=== PATIENT | female | born 1935 | race African-American/Black ===

== ENCOUNTER 2017-12-03 09:14 | Inpatient (IN) | payer MEDICARE, MEDICAID ==
[~2017-12-03] VITALS: Ht 162.6 cm; Wt 63.5 kg
[~2017-12-03 09:14] MED LIST: ASPI-1160 PO; ATEN50TA PO; CALC-1042 PO; DOCU-138 PO; LISI-648 PO; MEMA10TA2 PO; METF-414 PO; NIFE30TA94 PO; SIMV40TA5 PO
[2017-12-03 10:04] LABS: BASOPHILS % 0.7 % (0.0-2.0); EOSINOPHILS % 2.5 % (0.0-5.0); HEMATOCRIT. 34.9 % (36.0-48.0); HEMOGLOBIN. 11.4 g/dL (12.0-16.0); LYMPHOCYTES % 33.1 % (20.0-50.0); MEAN CORPUSCULAR HEMOGLOBIN 26.6 pg (28.0-32.0); MEAN CORPUSCULAR VOLUME 81.6 fL (81.0-99.0); MEAN PLATELET VOLUME 9.4 fl (7.4-10.4); MONOCYTES % 5.6 % (2.0-8.0); NEUTROPHILS % 58.1 % (40.0-76.0); PLATELET 214 x1000/uL (130-400); RED BLOOD CELL COUNT 4.28 mill/uL (4.2-5.4); RED CELL DISTRIBUTION WIDTH 14.5 % (11.6-14.6)
[2017-12-03 10:08] LABS: PROTHROMBIN TIME 10.3 sec (9.1-11.1)
[2017-12-03 10:11] LABS: CHLORIDE 112 mEq/L (98-107)
[2017-12-03] MEDS ORDERED: ACETAMINOPHEN 325MG TABLET PO PRN (10:45)
[2017-12-03] MEDS ORDERED: HYDROCODONE/ACETAMINOPHEN 5/325MG TABLET PO PRN (10:45)
[2017-12-03] MEDS ORDERED: NA PHOS,M-B/NA PHOS,DI-BA ENEMA 118ML PR PRN (10:45)
[2017-12-03] MEDS ORDERED: MAGNESIUM/ALUMINUM HYDROXIDE/SIMETHICONE 30ML UDC PO PRN (10:45)
[2017-12-03] MEDS ORDERED: CLONIDINE 0.1MG TABLET PO PRN (10:45)
[2017-12-03] MEDS ORDERED: DOCUSATE SODIUM 100MG CAPSULE PO PRN (10:45)
[2017-12-03] MEDS ORDERED: IPRATROPIUM/ALBUTEROL 0.5-3(2.5)MG/3ML NEB INH PRN (10:45)
[2017-12-03] MEDS ORDERED: ONDANSETRON HCL 4MG/2ML INJ IV PRN (10:45)
[2017-12-03] MEDS ORDERED: LORAZEPAM 2MG/ML CPJ IV PRN (10:45)
[2017-12-03] MEDS ORDERED: DIPHENHYDRAMINE 50MG/ML VIAL IV PRN (10:45)
[2017-12-03] MEDS ORDERED: HYDROMORPHONE HCL/PF 2MG/ML CPJ IV PRN (10:45)
[2017-12-03] MEDS ORDERED: GUAIFENESIN 200MG/10ML SUGAR FREE UDC PO PRN (10:45)
[2017-12-03 12:30] LABS: CLARITY URINE CLEAR (CLEAR); COLOR URINE YELLOW (YELLOW); KETONES URINE NEGATIVE (NEGATIVE); LEUKOCYTE ESTERASE URINE NEGATIVE (NEGATIVE); NITRITE URINE NEGATIVE (NEGATIVE); OCCULT BLOOD URINE NEGATIVE (NEGATIVE); PROTEIN URINE NEGATIVE (NEGATIVE); SPECIFIC GRAVITY URINE 1.019 (1.005-1.030); UROBILINOGEN URINE 0.2 E.U./dL (0.2-1.0)
[2017-12-03 16:45] VITALS: BP 151/75
[2017-12-03] MEDS ORDERED: ATOR20TA65 MT (16:53)
[2017-12-03] MEDS ORDERED: MAGN400C MT (16:53)
[2017-12-03] MEDS ORDERED: LOV40 SQ (16:53)
[2017-12-03] MEDS ORDERED: HYDR12.529 MT (16:53)
[2017-12-03] MEDS: ENOXAPARIN 40MG/0.4ML SYR SUBCUT SCH (17:04)
[2017-12-03] MEDS ORDERED: DEXTROSE 50% WATER 50ML SYRINGE IV PRN ×2 (18:15)
[2017-12-03 20:00] VITALS: BP 136/72
[2017-12-03] MEDS: BLOOD SUGAR DIAGNOSTIC STRIP TEST SCH (20:40)
[2017-12-03] MEDS: AMLODIPINE 5MG TABLET PO SCH (20:42)
[2017-12-03] MEDS: SODIUM CHLORIDE 0.45% 1,000 ML IV SCH (20:44)
[2017-12-03 21:16] LABS: VITAMIN B12 SERUM 553 pg/mL (211-911)
[2017-12-03 21:30] VITALS: BP 128/84
[2017-12-03] MEDS: INSULIN LISPRO 100 UNITS/ML SUBCUT SCH (22:27)
[2017-12-04] VITALS: BP 130/60
[2017-12-04 04:00] VITALS: BP 107/57
[2017-12-04] MEDS: BLOOD SUGAR DIAGNOSTIC STRIP TEST SCH ×4 (05:46→20:11)
[2017-12-04] MEDS: INSULIN LISPRO 100 UNITS/ML SUBCUT SCH ×4 (05:46→21:17)
[2017-12-04 08:00] VITALS: BP 128/71
[2017-12-04 08:02] LABS: EOSINOPHILS % 3.4 % (0.0-5.0); HEMATOCRIT. 31.3 % (36.0-48.0); HEMOGLOBIN. 10.4 g/dL (12.0-16.0); LYMPHOCYTES % 42.9 % (20.0-50.0); MEAN CORPUSCULAR HEMOGLOBIN 27.2 pg (28.0-32.0); MEAN CORPUSCULAR VOLUME 81.3 fL (81.0-99.0); MEAN PLATELET VOLUME 9.8 fl (7.4-10.4); MONOCYTES % 7.4 % (2.0-8.0); NEUTROPHILS % 45.3 % (40.0-76.0); PLATELET 190 x1000/uL (130-400); RED BLOOD CELL COUNT 3.85 mill/uL (4.2-5.4); RED CELL DISTRIBUTION WIDTH 14.2 % (11.6-14.6)
[2017-12-04 08:16] LABS: CHLORIDE 108 mEq/L (98-107)
[2017-12-04 08:40] LABS: HDL CHOLESTEROL 39 mg/dL (40-59); LDL CHOLESTEROL 87 mg/dL (5-100); T4 FREE 0.92 ng/dL (0.76-1.46)
[2017-12-04] MEDS: AMLODIPINE 5MG TABLET PO SCH ×2 (08:58→21:08)
[2017-12-04] MEDS: ASPIRIN 81MG EC TABLET PO SCH (08:58)
[2017-12-04 12:00] VITALS: BP 116/72
[2017-12-04] MEDS: SODIUM CHLORIDE 0.45% 1,000 ML IV SCH (15:51)
[2017-12-04 16:00] VITALS: BP 118/73
[2017-12-04] MEDS: MEMANTINE HCL 5MG TABLET PO SCH (16:00)
[2017-12-04] MEDS: LAMOTRIGINE 25MG TABLET PO SCH (17:31)
[2017-12-04] MEDS: ENOXAPARIN 40MG/0.4ML SYR SUBCUT SCH (17:34)
[2017-12-04 20:00] VITALS: BP 136/61
[2017-12-05] VITALS: BP 132/66
[2017-12-05 04:00] VITALS: BP 148/83
[2017-12-05] MEDS: BLOOD SUGAR DIAGNOSTIC STRIP TEST SCH ×4 (05:17→20:55)
[2017-12-05] MEDS: INSULIN LISPRO 100 UNITS/ML SUBCUT SCH ×4 (05:35→21:00)
[2017-12-05 08:00] VITALS: BP 152/73
[2017-12-05] MEDS: AMLODIPINE 5MG TABLET PO SCH ×2 (09:22→21:41)
[2017-12-05] MEDS: ASPIRIN 81MG EC TABLET PO SCH (09:22)
[2017-12-05] MEDS: MEMANTINE HCL 5MG TABLET PO SCH (09:22)
[2017-12-05] MEDS: LAMOTRIGINE 25MG TABLET PO SCH (09:22)
[2017-12-05 12:00] VITALS: BP 107/77
[2017-12-05 16:00] VITALS: BP 164/89
[2017-12-05] MEDS: ENOXAPARIN 40MG/0.4ML SYR SUBCUT SCH (17:26)
[2017-12-05 20:00] VITALS: BP 143/59
[2017-12-05] MEDS: SODIUM CHLORIDE 0.45% 1,000 ML IV SCH (21:40)
[2017-12-06] VITALS: BP 148/78
[2017-12-06 04:00] VITALS: BP 146/77
[2017-12-06] MEDS: BLOOD SUGAR DIAGNOSTIC STRIP TEST SCH ×2 (05:44→11:54)
[2017-12-06] MEDS: INSULIN LISPRO 100 UNITS/ML SUBCUT SCH ×2 (06:36→11:55)
[2017-12-06 08:00] VITALS: BP 143/84
[2017-12-06 08:05] LABS: BASOPHILS % 0.7 % (0.0-2.0); HEMATOCRIT. 31.9 % (36.0-48.0); HEMOGLOBIN. 10.8 g/dL (12.0-16.0); LYMPHOCYTES % 33.9 % (20.0-50.0); MEAN CORPUSCULAR VOLUME 80.1 fL (81.0-99.0); MEAN PLATELET VOLUME 9.2 fl (7.4-10.4); MONOCYTES % 8.5 % (2.0-8.0); NEUTROPHILS % 53.9 % (40.0-76.0); PLATELET 185 x1000/uL (130-400); RED BLOOD CELL COUNT 3.98 mill/uL (4.2-5.4); RED CELL DISTRIBUTION WIDTH 13.9 % (11.6-14.6)
[2017-12-06 08:33] LABS: CHLORIDE 104 mEq/L (98-107)
[2017-12-06] MEDS: MEMANTINE HCL 5MG TABLET PO SCH (09:23)
[2017-12-06] MEDS: ASPIRIN 81MG EC TABLET PO SCH (09:23)
[2017-12-06] MEDS: LAMOTRIGINE 25MG TABLET PO SCH (09:23)
[2017-12-06] MEDS: AMLODIPINE 5MG TABLET PO SCH (09:24)
[2017-12-06 12:00] VITALS: BP 122/73
== END 2017-12-06 15:35 | DRG 73 ==
LOC: EDBEDREQ 09:37 → ER 09:55 → 8WST 10:33 → EDBEDREQTM 10:35 → EDBEDREQ 10:35 → ENRESERV 14:52
PROVIDERS: ADMIT Internal Medicine; ATTEND Internal Medicine
PROC: 4A10X4Z Monitoring of Central Nervous Electrical Activity, External Approach (ICD-10-PCS; principal; 2017-12-04)
DX: G90.8 Other disorders of autonomic nervous system (principal); G93.41 Metabolic encephalopathy; E87.0 Hyperosmolality and hypernatremia; E46 Unspecified protein-calorie malnutrition; D50.9 Iron deficiency anemia, unspecified; E86.0 Dehydration; E78.5 Hyperlipidemia, unspecified; F41.9 Anxiety disorder, unspecified; G30.9 Alzheimer's disease, unspecified; R79.89 Other specified abnormal findings of blood chemistry; F02.80 Dementia in other diseases classified elsewhere, unspecified severity, without behavioral disturbance, psychotic disturbance, mood disturbance, and anxiety; I50.9 Heart failure, unspecified; I11.0 Hypertensive heart disease with heart failure; E11.65 Type 2 diabetes mellitus with hyperglycemia; Z68.24 Body mass index [BMI] 24.0-24.9, adult; Z79.899 Other long term (current) drug therapy; Z79.82 Long term (current) use of aspirin
CPT/HCPCS: 36415; 71045; 80048; 80061; 82607; 82962; 83735; 83880; 84439; 84443; 84484; 93005; 99285; J1650; J1815